=== PATIENT | female | born 1995 | race Native Hawaiian/Other Pacific Islander ===

== ENCOUNTER 2024-12-21 20:59 | Emergency (ER) | payer SELFPAY ==
[2024-12-21 21:01] VITALS: BP 145/116
--- NOTE | 2024-12-21 23:18 | ED.GENMED ---
History of Present Illness
General
Chief Complaint: Dental Problem
Source: patient
Exam Limitations: none
Time Seen by Provider: 12/21/24 22:39
History of Present Illness
History of Present Illness:
29yoF with no significant past medical history presenting for evaluation of dental pain. Patient had a filling placed to her right first molar many years ago. The filling fell out a few weeks ago. She started to have some mild discomfort in the
tooth yesterday which started to worsen a few hours ago. Pain radiates to the right ear. She is here requesting some antibiotics. She has not taken anything [id number] for her symptoms. No fevers or dysphagia.
Phy Exam
General Physical Exam
General Presentation: well appearing and no apparent distress
General Skin: warm and dry
General Habitus: normal
General Mental: alert
ENT Exam
ENT Exam: TM's normal, normocephalic and other (R first molar is broken with exposed root. No visualized periapical abscess. No overlying facial swelling or cellulitis. No elevation of floor of mouth. Normal phonation. Tolerating oral secretions.)
Pulmonary Exam
Pulmonary Exam: no respiratory distress
Neurological Exam
Neurological Exam: alert
[place] Coma Scale
Eye Opening: Spontaneous
Verbal Response: Oriented
Motor Response: Obeys Commands
GCS Total Score: 15
Skin Exam
Skin Exam: normal color and warm/dry
Psychiatric Exam
Psychiatric Exam: normal mood/affect
Course
Orders/Labs/Results
Orders:
Orders
12/21/24 23:19
Acetaminophen [Tylenol] 1,000 mg PO NOW STA
Clindamycin HCl [Cleocin] 300 mg PO NOW STA
Ibuprofen [Motrin] 600 mg PO NOW STA
Vital Signs
Initial and Last Documented VS:
Initial Vital Signs
Temp Pulse Resp BP Pulse Ox
99.2 F 75 17 145/116 99
12/21/24 21:01 12/21/24 21:01 12/21/24 21:01 12/21/24 21:01 12/21/24 21:01
Last Documented Vital Signs
Temp Pulse Resp BP Pulse Ox
99.2 F 75 17 145/116 99
12/21/24 21:01 12/21/24 21:01 12/21/24 21:01 12/21/24 21:01 12/21/24 21:01
MDM/Problems Addressed
Differential Diagnosis Includes:
29yoF here with dental pain x 1 day. Reports her filling broke a few weeks ago. No f/c. Broken tooth with exposed root noted on exam. No evidence of periapical abscess, facial cellulitis, or Jj's angina. Will start on a course of clindamycin
(PCN allergy). She is planning to call her dentist tomorrow. ED return precautions reviewed. Patient discharged in stable condition.
*Critical Care Note
Total Time (30-74mins, 75-104mins- exclusive of procedures): Not Applicable
ED Attending Note
-
Portions of this chart may have been created with voice recognition software.� Occasional wrong word or��sound alike� substitutions may have occurred due to the inherent limitations of voice recognition software.
Discharge Plan
Departure
Patient Disposition: Home (Routine Discharge)
Date of Disposition: 12/21/24
Time of Disposition: 23:19
Patient with high blood pressure during this ER visit?: Yes
Discharge Problem:
Dentalgia
Instructions: Dental Pain (DC)
Prescriptions:
New
clindamycin HCl [Cleocin HCl] 300 mg capsule
300 mg PO Q6H 7 Days Qty: 27 0RF
Referrals:
UNKNOWN - PT DOES,NOT KNOW [Family Provider]
Activity Restrictions/Additional Instructions:
Take antibiotics as prescribed. Take probiotics or eat yogurt while taking the antibiotic.
Take Tylenol 650 mg and ibuprofen 600 mg every 6 hours as needed for pain.
Please follow-up with your dentist. Return to the ER with any worsening symptoms including fevers.
Interventions
Interventions:
*Risk Screen - Suicide Last Done: 12/21/24 21:01
*General Assessment Last Done: 12/21/24 22:40
*Neglect/Abuse Screening Last Done: 12/21/24 21:01
*ED- Fall Risk Assessment Last Done: 12/21/24 22:40
*Nursing Disposition Last Done: 12/21/24 23:50
Discharge Date and Time
Discharge Date/Time: 12/21/24 23:50
Print Language: PORTUGUESE
[2024-12-21] MEDS: MOTRIN 600 MG PO (23:33)
[2024-12-21] MEDS: CLEOCIN 300 MG PO (23:34)
[2024-12-21] MEDS: TYLENOL 1000 MG PO (23:34)
== END 2024-12-21 23:50 | disposition home or self-care (01) ==
LOC: EMR 20:59
PROVIDERS: EMERGENCY PHYSICIAN Emergency Medicine
DX: K08.89 Other specified disorders of teeth and supporting structures (principal)
CPT/HCPCS: 99282